=== PATIENT | male | born 2000 | race Caucasian/White ===

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

== ENCOUNTER 2019-01-23 14:56 | Emergency (ER) | payer OTHER ==
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
[2019-01-23 16:45] VITALS: BP 113/81
== END 2019-01-23 16:44 | disposition home or self-care (01) ==
DX: M24.421 Recurrent dislocation, right elbow (principal)